=== PATIENT | female | born 1970 | race Caucasian/White ===

== ENCOUNTER 2025-01-05 08:53 | Outpatient (AMB) | payer OTHER, SELFPAY ==
--- NOTE | 2025-01-05 08:59 | A.OFFPC_ITS ---
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 Intake Note: New patient visit Advertising Account Representative Required: No Allergies No Known Allergies Allergy (Verified 01/05/25 08:59) Medication List - Last Reconciled 01/05/25 by Ana María Chilel PA-C No Known Home Meds Tobacco use date assessed: 01/05/25 Dental Screening Dental Screen Date: 01/05/25 Did you have a dental visit in the last 12 months?: Yes Did you have a dental problem in the last 6 months where you did not have access to dental care?: No Was dental information given to patient?: Patient has dentist HPI 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 She says that she is overall very healthy. No acute concerns today. She is transferring from [facility]. CV: States that one time had elevated cholesterol. No interested in statins. 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 Thread Tool: due fam hx: renal failure father and paternal grandfather PFSH Surgical History (Updated 01/05/25 @ 09:08 by Yvonne Moore CMA) H/O tooth extraction Family History (Updated 01/05/25 @ 09:11 by Yvonne Moore CMA) Father Osteoporosis Respiratory failure Brother Substance abuse Alcoholism Maternal Grandmother Alzheimers disease Paternal Grandfather Renal failure Maternal Grandfather Cancer Other FH: mental illness Social History Housing: House Alcohol intake: current Patient Tobacco Use Status: Never used Tobacco e-Cigarette/Vaping Use: Never Used service: No Current occupational status: employed 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 1. Little interest or pleasure in doing things: not at all 2. Feeling down, depressed, or hopeless: not at all 3. Trouble falling or staying asleep, or sleeping too much: not at all 4. Feeling tired or having little energy: not at all 5. Poor appetite or overeating: not at all 6. Feeling bad about yourself - or that you are a failure or have let yourself or your family down: not at all 7. Trouble concentrating on things, such as reading the newspaper or watching television: not at all 8. Moving or speaking so slowly that other people could have noticed. Or the opposite - being so fidgety or restless that you have been moving around a lot more than usual: not at all 9. Thoughts that you would be better off or of hurting yourself in some way: not at all Total score: 0 Depression Screening Interpretation: Negative Depression Screening Done: Yes 33633 - PHQ-9 Billing: Yes Source: Developed by Drs. Moses Jorgensen, Yenni Swanson, Aki Beckford and colleagues, with an educational alyson from [employer]. Thrive Questionnaire Date Thrive assessed: 12/31/24 I am a: Patient What is your living situation today?: I have a steady place to live Within the past 12 months, did the food you bought not last and you didn't have the money to get more?: Never true Within the past 12 months, did you worry whether your food would run out before you got money to buy more?: Never true Do you have trouble paying for medicines?: No Do you have trouble getting transportation to medical appointments?: No Do you have trouble paying your heating and electricity bill?: No Do you have trouble taking care of your child, family member or friend?: No Do you have trouble with day-to-day activities such as bathing, preparing meals, shopping, managing finances, etc.?: No Are you currently unemployed and looking for a job?: No Are you interested in more education?: No Please select the resources that you would like help with: None Currently or been in a relationship where the following occur: No concerns reported THRIVE Score: 0 AUDIT C Alcohol Use Questionnaire (AUDIT-C) 1. How often do you have a drink containing alcohol?: Monthly or less 2. How many drinks containing alcohol do you have on a typical day when you are drinking?: 1 or 2 3. How often do you have six or more drinks on one occasion?: Never Total Score: 1 Score Reviewed/Action Taken: Yes ALEKSANDR-7 AMB Questionnaire ALEKSANDR-7 Date ALEKSANDR - 7 assessed: 01/05/25 Feeling nervous, anxious, or on edge: 0 = Not at all Not being able to stop or control worryin = Not at all Worrying too much about different things: 0 = Not at all Trouble relaxin = Not at all Being so restless that it is hard to sit still: 0 = Not at all Becoming easily annoyed or irritable: 0 = Not at all Feeling afraid as if something awful might happen: 0 = Not at all Total ALEKSANDR-7 score (0-4 normal; 5-9 mild; 10-14 moderate; 15-21 severe): 0 Source: Developed by Drs. Moses Jorgensen, Yenni Swanson, Aki Beckford and colleagues, with an educational alyson from [employer]. ALEKSANDR-7 Assessment Billing ALEKSANDR-7 Assessment Tool: ALEKSANDR-7 Assessment 45305 Physical exam (Primary Care) Vital Signs: Last Vital Signs Temp 97.9 F 01/05/25 09:05 Pulse 64 01/05/25 09:05 Resp 14 01/05/25 09:05 BP 116/84 01/05/25 09:05 Pulse Ox 100 01/05/25 09:05 Oxygen Delivery Method Room Air 01/05/25 09:05 Depression Screening Interpretation: Negative Thrive Assessment: Date of Thrive Assessment Date Thrive assessed 12/31/24 12/31/24 08:06 Currently or been in a relationship where the following occur: No concerns reported Const Orientation/consciousness: patient oriented x3 HENMT Ears: hearing grossly normal bilaterally and TM's normal bilaterally General nose exam: No nasal polyps present Face and sinus: Yes sinuses nontender Mouth: Normal oral and palatal mucosa present Eyes Pupils: Equal, round and reactive pupils present EOM: EOMs intact bilaterally Neck Neck: Yes full ROM and Yes no lymphadenopathy Thyroid: Thyroid normal Chest Chest palpation & inspection: normal inspection of the chest Resp Auscultation: clear to auscultation bilaterally Cardio Rate: regular rate Rhythm: regular rhythm Heart sounds: S1 normal heart sound present and S2 normal heart sound present Peripheral pulses: Peripheral pulses 2+ throughout GI Other: Soft, nontender Auscultation: normal bowel sounds Rectal Exam - Female: deferred General: Yes no CVA tenderness Back/Spine/Pelvis Other: Nontender Back: no CVA tenderness Skin General skin exam: no rashes or lesions noted Neuro General: patient oriented x3, gait normal, CN's II-XI intact bilaterally and deep tendon reflexes 2+ bilaterally Cranial nerves: Yes Equal, round and reactive pupils present Motor exam (neuro): 5/5 motor strength present throughout Sensory Exam: double simultaneous stimulation for sensation normal Coordination: [id number] test normal and Romberg test negative Extrem General: Yes normal to inspection and Yes full ROM Psych Affect: normal affect Attitude: cooperative Thought process: Normal thought process present Thought content: Normal thought content present Insight: Good insight present (Psych) Judgement: Good judgement present (Psych) Coding Level of Care Code New Pt Prev Care 40-64y(97347) Diagnoses Routine general medical examination at a health care facility Z00.00 Dyslipidemia E78.5 Additional Codes ALEKSANDR-7 Assessment Billing - ALEKSANDR-7 Assessment Tool: ALEKSANDR-7 Assessment 52414 ([id number]) PHQ-9 - 72139 - PHQ-9 Billing: Yes ([id number]) Assessment & Plan Assessment & Plan (1) Routine general medical examination at a health care facility: Code(s): Z00.00 - Encounter for general adult medical examination without abnormal findings Plan: reviewed labs ordered cologuard ordered mammo ordered referral to derm (2) Dyslipidemia: Code(s): E78.5 - Hyperlipidemia, unspecified Category: Medical Plan: not interested in statins lipids ordered Orders: Orders MM screening mammo BI Today Z12.31 - Encounter for screening mammogram for malignant neoplasm of breast Complete Blood Count Auto Diff Today Z - Encounter for other specified special examinations Comprehensive [place]. Panel Fast Today Z - Encounter for other specified special examinations TSH reflex Free T4 Today Z. - Encounter for other specified special examinations Lipid Panel Today Z - Encounter for other specified special examinations UA CC w/rflx Micro + Cult Today R30.0 - Dysuria, Z. - Encounter for other specified special examinations Microalbumin, Random (w Creat) Today Z01 - Encounter for other specified special examinations Referrals Cologuard Test Z12.11 - Encounter for screening for malignant neoplasm of colon Dermatology Referral Z12.83 - Encounter for screening for malignant neoplasm of skin [employer]IL[employer] MECH[employer]IC Referral Z01.419 - Encounter for gynecological examination (general) (routine) without abnormal findings
[2025-01-05 09:05] VITALS: BP 116/84; PULSE 64; RESP 14; TEMP 36.6; O2SAT 100
== END 2025-01-05 09:43 | disposition home or self-care (01) ==
LOC: HO.HMCFM 08:53
PROVIDERS: PCP Physician Assistant; Visit Provider Physician Assistant
DX: Z00.00 Encounter for general adult medical examination without abnormal findings (principal); E78.5 Hyperlipidemia, unspecified

== ENCOUNTER 2025-01-05 08:53 | Outpatient (REF) | payer OTHER, SELFPAY ==
--- OUTSIDE RECORDS SUMMARY | 2025-01-05 11:46 | XMS_ITS | Clinical Summary ---
Author Organization [facility] Address [address] [place] [address] Care Team Providers Care Pedicurist Name Role Phone Unavailable Primary Care Provider Unavailabl e Source Comments PLEASE NOTE, if this patient is a minor, it may be UNLAWFUL to discuss sensitive information that is contained in these records (such as FAMILY PLANNING, MENTAL HEALTH or SUBSTANCE ABUSE) with the minor patient's parent or other person without the patient's specific authorization.[facility] Allergies No known active allergies Medications No known medications Active Problems No known active problems Social History Tobacco Use Types Packs/Day Years Used Date Smoking Tobacco: Never Smokeless Tobacco: Never Tobacco Cessation:Counseling Given: Not Answered Social Connections Answer Date Recorded Connectedness 0 11/14/2023 Financial Resource Strain Answer Date R ecorded Financial Resource Strain 0 2021 Stress Answer Date Recorded Stress 0 10/10/2021 Physical Activity Answer Date Recorded Physical Activity 0 10/10/2021 Food Insecurity Answer Date Recorded Food 0 11/20/2023 Transportation Needs Answer Date Record ed Transportation 0 10/10/2021 Housing Stability Answer Date Recorded Housing 0 10/10/2021 Safety and Environment Answer Date Isaiah rded Safety 0 10/10/2021 Utilities Answer Date Recorded Utilities 0 10/10/2021 Employment Answer Date Recorded Stress 0 11/14/2023 Comments Unknown Sex and Gender Information Value Date Recorded Sex Assigned at Not on file Legal Sex Female 6:36 AM PDT Gender Identity Not on file Sexual Orientation Not on file Last Filed Vital Signs Vital Sign Reading Time Taken Comments Blood Pressure 123/75 12/14/2022 12:20 PM EDT Pulse 66 12/14/2022 12:20 PM EDT Temperature - - Respiratory Rate - - Oxygen Saturation - - Inhaled Oxygen Concentration - - Weight - - Height - - Body Mass Index - - Plan of Treatment Health Maintenance Due Date Last Done Comments Anxiety Screening 1968 Dental FMX/Pano 1968 Diabetes Screening 1968 HPV Screening (self-collect) 1968 HPV Screening 1968 Hepatitis C Screening 1968 Lipid Screening 1968 Pap + HPV 1968 Tobacco Screening 1968 HIV Screening 10/19/1983 Imm-DTaP/Tdap/Td (1 - Tdap) 10/19/1987 Imm-Hepatitis B (1 of 3 - 19 + 3-dose series) 10/19/1987 Cervical Cancer Screening 1989 Pap Smear 1989 Breast Cancer Screening (Mammogram) 2008 CT Colonography 2013 Colonoscopy 2013 Colorectal Cancer Screening 2013 FIT/gFOBT 2013 Fecal DNA 2013 Flexible Sigmoidoscopy 2013 Imm-Pneumococcal 50+ (1 of 1 - PCV) 2018 Imm-Zoster, Recombinant (1 of 2) 2018 Hypertension Screening (#1) 12/14/2023 Alcohol and Drug Screen 02/25/2024 Depression Annual Screen 02/25/2024 Dental BW 09/23/2024 09/22/2023, 05/25, 10/10/2021 Dental Examination 09/23/2024 09/22/2023, 0 06/07/2022, 10/10/2021 Dental Perio Charting 09/23/2024 09/22/2023 , 06/07/2022, 10/10/2021 Dental Prophy 09/23/2024 09/22/2023, 11/25, 06/07/2022, Additional history exists [id number] ( season) 2024 Imm-Influenza (#1) 2024 Cervical Ablation/Cold-Knife Conization Discontinued Cervical Cryotherapy Discontinued Colposcopy Discontinued Excision/Leep Discontinued HPV Genotyping Discontinued Vaginal Pap Discontinued Vulvoscopy Discontinued Procedures Procedure Name Priority Date/Time Associated Diagnosis Comments COMP PERIODONTAL EVALUATION - NEW/EST PATIENT Routine 09/22/2023 9:00 AM EDT Encounter for dental examination and cleaning without abnormal findings BITEWINGS - FOUR RADIOGRAPHIC IMAGES Routine 09/22/2023 9:00 AM EDT Encounter for dental examination and cleaning without abnormal findings PROPHYLAXIS - ADULT Routine 09/22/2023 9 :00 AM EDT Encounter for dental examination and cleaning without abnormal findings PERIODIC ORAL EVALUATION ESTABLISHED PATIENT Routine 09/22/2023 9:00 AM EDT Encounter for dental examination and cleaning without abnormal findings from Last 3 Months or Most Recently Relevant to Health Maintenance Insurance [facility] [place] DENTAL
[2025-01-05 11:49] LABS: MANUAL DIFF FLAG NO
[2025-01-05 11:52] LABS: Appearance Urine Clear; Glucose Urine UA Negative (Negative); PH 6.0 (5.0-9.0); Specific Gravity - Urine <= 1.005 (1.005-1.025)
[2025-01-05 12:10] LABS: Hematocrit 42.3 % (37.0-47.0); Hemoglobin 13.8 g/dl (12.0-16.0); Imm Gran Abs Auto 0.01 X10*3/uL (0.00-0.03); Imm Gran Pct Auto 0.2 % (0.0-0.4); Lymphocytes Absolute Auto 2.4 X10*3/uL (1.2-4.9); Mean Corpuscular HGB Conc 32.6 g/dl (31.0-35.0); Mean Corpuscular Hemoglobin 29.7 pg (27.0-33.0); Mean Corpuscular Volume 91.0 fL (80.0-98.0); NRBC Abs Auto 0.000 X10*3/uL (0.0-0.012); NRBC Pct Auto 0.0 /100WBC (0.0-0.2); Platelet Count 200 X10*3/uL (160-400); Red Blood Count 4.65 X10*6/uL (4.20-5.50); White Blood Count 5.2 X10*3/uL (4.8-10.8)
[2025-01-05 13:02] LABS: Alanine Aminotransferase 29 U/L (0-31); Albumin Level 4.4 g/dL (3.5-5.0); Alkaline Phosphatase 80 U/L (39-117); Anion Gap 10 (12-20); Aspartate Amino Transferase 31 U/L (5-31); Blood Urea Nitrogen 18 mg/dL (9-16); Calcium 9.4 mg/dL (8.4-10.2); Carbon Dioxide 26 mmol/L (22-29); Chloride 108 mmol/L (96-108); Cholesterol 254 mg/dL (<200); Estimated Glomerular Filt Rate 57; HDL Cholesterol 61 mg/dL (>40); Potassium 3.9 mmol/L (3.3-5.1); Sodium 140 mmol/L (135-145); Total Protein 7.2 g/dL (6.5-8.0); Triglycerides 164 mg/dL (<150)
== END 2025-01-05 08:54 | disposition home or self-care (01) ==
LOC: HO.WFDLDS 08:53
PROVIDERS: PCP Physician Assistant; Visit Provider Physician Assistant
DX: Z00.00 Encounter for general adult medical examination without abnormal findings (principal); R30.0 Dysuria; E78.5 Hyperlipidemia, unspecified; Z01.89 Encounter for other specified special examinations
CPT/HCPCS: 36415; 80053; 80061; 81003; 82043; 82570; 84443; 85025; 96127

== ENCOUNTER 2025-01-19 08:18 | Outpatient (REF) | payer OTHER, SELFPAY ==
--- NOTE | ~2025-01-19 | US_ITS ---
CLINICAL HISTORY: R94.4 - Abnormal results of kidney function studies US of kidneys Comparison: None provided Findings: Right kidney upper pole is not well seen, grossly normal in size, echogenicity and morphology, 10.5 cm in length. No calculus, mass or hydronephrosis. Left kidney is normal in size, echogenicity and morphology, 11.8 cm in length. No calculus, mass or hydronephrosis. Limited color Doppler demonstrates unremarkable bilateral blood flow. Impression: Normal renal ultrasound. This document has been electronically signed by: Lin Grossman MD on 01/19/2025 16:24:24
== END 2025-01-19 08:19 | disposition home or self-care (01) ==
LOC: HO.HMGCX 08:18
PROVIDERS: PCP Physician Assistant; Visit Provider Physician Assistant
DX: R94.4 Abnormal results of kidney function studies (principal); Z84.19 Family history of other disorders of kidney and ureter
CPT/HCPCS: 76775